=== PATIENT | male | born 1950 | race Caucasian/White ===

== ENCOUNTER 2022-12-16 19:56 | Inpatient (IN) | payer MEDICARE, SELFPAY ==
[~2022-12-16] VITALS: Ht 182.9 cm; Wt 91.6 kg
[~2022-12-16 19:56] MED LIST: ASPI-730 PO; METO50TA9 PO
[2022-12-16] MEDS ORDERED: MIDAZOLAM HCL 5 MG/ML VIAL ONE (20:02)
[2022-12-16] MEDS ORDERED: SODIUM CHLORIDE 0.9% 100 ML ONE (20:06)
[2022-12-16] MEDS ORDERED: IOHEXOL 350 MG/ML 100 ML VIAL ONE (20:06)
[2022-12-16] MEDS ORDERED: SODIUM CHLORIDE 0.9% 1,000 ML IV ONE (20:15)
[2022-12-16] MEDS ORDERED: MIDAZOLAM HCL 2 MG/2 ML VIAL IVP ONE (20:15)
[2022-12-16 20:39] LABS: BASOPHILS % (AUTO) 0.1 % (0.0-2.0); EOSINOPHILS % (AUTO) 0.1 % (1.0-6.0); HEMATOCRIT 48.2 % (41-53); HEMOGLOBIN 15.6 g/dL (13.5-17.5); LYMPHOCYTES # (AUTO) 0.8 K/uL (1.0-4.8); LYMPHOCYTES % (AUTO) 5.8 % (22.0-44.0); MEAN CORPUSCULAR HEMOGLOBIN 33.5 pg (26.0-34.0); MEAN CORPUSCULAR HGB CONC 32.4 G/dL (31.0-37.0); MEAN CORPUSCULAR VOLUME 104 fL (80-100); MONOCYTES # (AUTO) 1.1 K/uL (0.1-1.0); MONOCYTES % (AUTO) 7.9 % (2.0-9.0); NEUTROPHILS # (AUTO) 12.4 K/uL (1.8-7.7); PLATELET COUNT (AUTO) 226 K/uL (150-450); RED BLOOD CELL COUNT(AUTO) 4.66 MIL/uL (4.50-5.90); RED CELL DISTRIBUTION WIDTH 13.4 % (11.5-14.5)
[2022-12-16 20:43] LABS: NEUTROPHILS % (AUTO) 86.1 % (40.0-70.0)
[2022-12-16 20:48] LABS: ALBUMIN 3.7 g/dL (3.4-5.0); BILIRUBIN,TOTAL 0.5 mg/dL (0.1-1.0); CALCIUM, TOTAL 8.9 mg/dL (8.8-10.5); CREATININE 1.56 mg/dL (0.60-1.30); TOTAL PROTEIN, SERUM 7.5 g/dL (6.4-8.2)
[2022-12-16 20:52] LABS: POTASSIUM 2.6 mmol/L (3.5-5.1)
[2022-12-16 21:04] LABS: INR 1.2 (0.9-1.1); PROTHROMBIN TIME 13.1 SEC (9.4-11.6)
[2022-12-16] MEDS ORDERED: HEPARIN SODIUM,PORCINE 5,000 UNITS/ML VIAL IVP ONE ×2 (21:15→23:15)
[2022-12-16] MEDS ORDERED: ASPIRIN 300 MG RECTAL SUPPOSITORY PR ONE (21:15)
[2022-12-16] MEDS ORDERED: SODIUM BICARBONATE 50 MEQ/50 ML VIAL ONE (21:27)
[2022-12-16] MEDS ORDERED: LIDOCAINE/PF 1% 30 ML VIAL ONE (21:27)
[2022-12-16] MEDS ORDERED: HEPARIN SODIUM 1000 UNITS/NS 1,000 ML ONE (21:28)
[2022-12-16] MEDS ORDERED: IOHEXOL 300 MG/ML 100 ML VIAL ONE (21:28)
[2022-12-16] MEDS ORDERED: POTASSIUM CHL 10 MEQ/WATER 50 ML IV ONE (21:45)
[2022-12-16 21:46] LABS: AMPHET/METH SCREEN,URINE NEGATIVE (NEGATIVE); BARBITURATE SCREEN, URINE NEGATIVE (NEGATIVE); BENZODIAZEPINES SCREEN,URINE NEGATIVE (NEGATIVE); CANNABINOID SCREEN,URINE NEGATIVE (NEGATIVE); COCAINE SCREEN,URINE NEGATIVE (NEGATIVE); METHADONE SCREEN, URINE NEGATIVE (NEGATIVE); OPIATE SCREEN,URINE NEGATIVE (NEGATIVE); PHENCYCLIDINE SCREEN,URINE NEGATIVE (NEGATIVE)
[2022-12-16 22:02] LABS: APPEARANCE,URINE CLEAR (CLEAR); BILIRUBIN,URINE NEGATIVE (NEGATIVE); GLUCOSE, URINE (UA) 300-500 mg/dL (NEGATIVE); KETONES,URINE 80-100 mg/dL (NEGATIVE); LEUKOCYTE ESTERASE ,URINE NEGATIVE (NEGATIVE); NITRATE,URINE POSITIVE (NEGATIVE); OCCULT BLOOD,URINE NEGATIVE (NEGATIVE); PH,URINE 5.5 (5.0-8.0); PROTEIN,URINE TRACE mg/dL (NEGATIVE); SPECIFIC GRAVITIY, URINE 1.015 (1.003-1.030); UROBILINOGEN,URINE <=1.0 mg/dL (<=1.0)
[2022-12-16 22:15] LABS: RBC,URINE 0-2 /HPF (0-2)
[2022-12-16] MEDS ORDERED: POTASSIUM CHL 10 MEQ/WATER 50 ML IV SCH (22:15)
[2022-12-16 22:16] LABS: BACTERIA,URINE Many /HPF (None Seen); SQUAMOUS EPITHELIAL CELL,UR Few /LPF (None Seen)
[2022-12-16] MEDS ORDERED: HEPARIN SODIUM 1000 UNITS/NS 1,000 ML IARTER ONE (22:30)
[2022-12-16] MEDS ORDERED: IOHEXOL 300 MG/ML 100 ML VIAL ICOR ONE (22:30)
[2022-12-16] MEDS ORDERED: LIDOCAINE 1% 30 ML/SOD BICARB 8.4% 4 ML SQ ONE (22:30)
[2022-12-16] MEDS: POTASSIUM CHL 10 MEQ/WATER 50 ML IV SCH ×2 (22:43→22:54)
[2022-12-16] MEDS ORDERED: DEXTROSE 50%-WATER 25 GM/50 ML SYRINGE IVP PRN (22:45)
[2022-12-16] MEDS ORDERED: HEPARIN SODIUM,PORCINE 5,000 UNITS/ML VIAL IVP PRN ×4 (22:45→23:15)
[2022-12-16] MEDS ORDERED: ALBUTEROL SULFATE 2.5 MG/0.5 ML NEB SOLUTION NEB PRN (22:45)
[2022-12-16] MEDS ORDERED: ACETAMINOPHEN 325 MG TABLET PO PRN (22:45)
[2022-12-16] MEDS ORDERED: HEPARIN SODIUM 25000 UNITS/D5W 250 ML IV PRN ×2 (22:45→23:15)
[2022-12-16] MEDS ORDERED: ONDANSETRON HCL 4 MG/2 ML VIAL IVP PRN (22:45)
[2022-12-16] MEDS ORDERED: IPRATROPIUM BROMIDE 0.5 MG/2.5 ML NEB SOLUTION NEB PRN (22:45)
[2022-12-17] VITALS (8 sets, daily range): BP systolic 115–147; BP diastolic 53–83
[2022-12-17] MEDS ORDERED: HEPARIN SODIUM,PORCINE 5,000 UNITS/ML VIAL SQ SCH
[2022-12-17 00:24] LABS: COVID AG,FIA SOURCE NASAL SWAB
[2022-12-17 00:46] LABS: IRON, SERUM 94 mcg/dL (50-175)
[2022-12-17 00:51] LABS: SALICYLATE 0.8 mg/dL (2.8-20.0)
[2022-12-17 01:11] LABS: ACETAMINOPHEN < 2 mcg/mL (10-30)
[2022-12-17] MEDS: CefTRIAXone 1 GM/DEXTROSE 50 ML IV SCH (01:50)
[2022-12-17] MEDS: POTASSIUM CHL 10 MEQ/WATER 50 ML IV SCH ×2 (01:50→02:21)
[2022-12-17] MEDS: AZITHROMYCIN 500 MG/NS 250 ML IV SCH (01:51)
[2022-12-17 02:23] LABS: LACTIC ACID 2.8 mmol/L (0.4-2.0)
[2022-12-17] MEDS ORDERED: SODIUM CHLORIDE 0.9% 1,000 ML IV ONE (03:30)
[2022-12-17] MEDS: METOPROLOL TARTRATE 5 MG/5 ML VIAL IVP SCH ×4 (05:38→17:27)
[2022-12-17 06:41] LABS: GLUCOSE,POINT OF CARE 138 MG/DL (70-110)
[2022-12-17 07:12] LABS: BASOPHILS % (AUTO) 0.2 % (0.0-2.0); EOSINOPHILS % (AUTO) 0 % (1.0-6.0); HEMATOCRIT 43.7 % (41-53); HEMOGLOBIN 14.5 g/dL (13.5-17.5); LYMPHOCYTES # (AUTO) 1.1 K/uL (1.0-4.8); LYMPHOCYTES % (AUTO) 9.7 % (22.0-44.0); MEAN CORPUSCULAR HEMOGLOBIN 33.5 pg (26.0-34.0); MEAN CORPUSCULAR HGB CONC 33.1 G/dL (31.0-37.0); MEAN CORPUSCULAR VOLUME 101 fL (80-100); MONOCYTES # (AUTO) 0.8 K/uL (0.1-1.0); MONOCYTES % (AUTO) 7.6 % (2.0-9.0); NEUTROPHILS # (AUTO) 9.2 K/uL (1.8-7.7); NEUTROPHILS % (AUTO) 82.5 % (40.0-70.0); PLATELET COUNT (AUTO) 198 K/uL (150-450); RED BLOOD CELL COUNT(AUTO) 4.31 MIL/uL (4.50-5.90); RED CELL DISTRIBUTION WIDTH 13.1 % (11.5-14.5)
[2022-12-17 07:20] LABS: ANION GAP 8 mmol/L (8-16); CALCIUM, TOTAL 8.4 mg/dL (8.8-10.5); CARBON DIOXIDE 25 mmol/L (22-29); CHLORIDE 104 mmol/L (98-107); CREATININE 0.93 mg/dL (0.60-1.30); GLOMERULAR FILTR. RATE CALC > 60 mL/min (>60); GLUCOSE,RANDOM 135 mg/dL (70-110); SODIUM SERUM 137 mmol/L (136-145); UREA NITROGEN, BLOOD 16 mg/dL (7-18)
[2022-12-17 07:22] LABS: ABG A-A DIFF O2 109.2 mmHg (10-20.0); ABG BASE EXCESS -1.4 mmol/L (-2.0-3.0); ABG METHEMOGLOBIN 0.3 % (0.0-1.5); ABG OXYGEN SATURATION 96.1 % (95.0-98.0); ABG OXYHEMOGLOBIN 94.9 % (94.0-100.0); ABG PCO2 32 mmHg (35-45); ABG PH 7.463 (7.35-7.450); O2 DEVICE,BLOOD GAS CANNULA (ROOM AIR); PO2, ARTERIAL BG 81.6 mmHg (75.0-83.0); SITE, BLOOD GAS RT RADIAL; SOURCE, BLOOD GAS ARTERIAL; TEMPERATURE, FAHRENHEIT, BG 98.6 FAHREN (96.0-98.6)
[2022-12-17] MEDS ORDERED: ASPIRIN 81 MG CHEWABLE TABLET PO SCH (08:00)
[2022-12-17] MEDS: ASPIRIN 81 MG CHEWABLE TABLET NG SCH (09:00)
[2022-12-17 13:11] LABS: GLUCOSE,POINT OF CARE 111 MG/DL (70-110)
[2022-12-17] MEDS: LORazepam 2 MG/ML VIAL IVP PRN (13:33)
[2022-12-17] MEDS ORDERED: CLOPIDOGREL BISULFATE 300 MG TABLET PO ONE (16:30)
[2022-12-17 19:26] LABS: GLUCOSE,POINT OF CARE 146 MG/DL (70-110)
[2022-12-17] MEDS: ATORVASTATIN CALCIUM 40 MG TABLET NG SCH ×2 (21:00→21:07)
[2022-12-17] MEDS: INSULIN GLARGINE,HUM.REC.ANLOG 100 UNITS/ML SQ SCH ×2 (21:00→21:09)
[2022-12-17 21:21] LABS: GLUCOSE,POINT OF CARE 116 MG/DL (70-110)
[2022-12-18] VITALS (15 sets, daily range): BP systolic 142–183; BP diastolic 34–100
[2022-12-18] MEDS: METOPROLOL TARTRATE 5 MG/5 ML VIAL IVP SCH ×4 (00:18→18:35)
[2022-12-18] MEDS: CefTRIAXone 1 GM/DEXTROSE 50 ML IV SCH (01:36)
[2022-12-18] MEDS: AZITHROMYCIN 500 MG/NS 250 ML IV SCH (02:14)
[2022-12-18 07:31] LABS: GLUCOSE,POINT OF CARE 121 MG/DL (70-110)
[2022-12-18] MEDS: CLOPIDOGREL BISULFATE 75 MG TABLET PO SCH (09:00)
[2022-12-18] MEDS: ASPIRIN 81 MG CHEWABLE TABLET NG SCH (09:00)
[2022-12-18] MEDS ORDERED: ZOLPIDEM TARTRATE 10 MG TABLET PO PRN (14:00)
[2022-12-18 14:16] LABS: GLUCOSE,POINT OF CARE 89 MG/DL (70-110)
[2022-12-18] MEDS ORDERED: IOHEXOL 350 MG/ML 100 ML VIAL ONE (14:52)
[2022-12-18] MEDS ORDERED: LIDOCAINE/PF 1% 30 ML VIAL ONE (14:52)
[2022-12-18] MEDS ORDERED: HEPARIN SODIUM 1000 UNITS/NS 1,000 ML ONE (14:52)
[2022-12-18] MEDS ORDERED: SODIUM BICARBONATE 50 MEQ/50 ML VIAL ONE (14:52)
[2022-12-18 15:09] LABS: ANION GAP 8 mmol/L (8-16); CALCIUM, TOTAL 8.7 mg/dL (8.8-10.5); CARBON DIOXIDE 28 mmol/L (22-29); CHLORIDE 106 mmol/L (98-107); CREATININE 0.85 mg/dL (0.60-1.30); GLOMERULAR FILTR. RATE CALC > 60 mL/min (>60); GLUCOSE,RANDOM 103 mg/dL (70-110); POTASSIUM 3.6 mmol/L (3.5-5.1); SODIUM SERUM 142 mmol/L (136-145); UREA NITROGEN, BLOOD 11 mg/dL (7-18)
[2022-12-18] MEDS ORDERED: FentaNYL CITRATE PF 100 MCG/2 ML VIAL ONE (15:35)
[2022-12-18] MEDS ORDERED: MIDAZOLAM HCL 2 MG/2 ML VIAL ONE (15:36)
[2022-12-18] MEDS ORDERED: IOHEXOL 300 MG/ML 50 ML VIAL ONE (15:49)
[2022-12-18] MEDS ORDERED: LABETALOL HCL 5 MG/ML 20 ML VIAL IVP ONE ×2 (15:57→16:30)
[2022-12-18] MEDS ORDERED: HEPARIN SODIUM 1000 UNITS/NS 1,000 ML IARTER ONE (16:00)
[2022-12-18] MEDS ORDERED: MIDAZOLAM HCL 2 MG/2 ML VIAL IVP ONE ×2 (16:00)
[2022-12-18] MEDS ORDERED: FentaNYL CITRATE PF 100 MCG/2 ML VIAL IVP ONE ×2 (16:00)
[2022-12-18] MEDS ORDERED: LIDOCAINE 1% 30 ML/SOD BICARB 8.4% 4 ML SQ ONE (16:00)
[2022-12-18] MEDS ORDERED: IOHEXOL 300 MG/ML 100 ML VIAL IARTER ONE (16:00)
[2022-12-18] MEDS ORDERED: IOHEXOL 300 MG/ML 100 ML VIAL ONE (16:28)
[2022-12-18] MEDS: LORazepam 2 MG/ML VIAL IVP PRN ×2 (18:28→20:48)
[2022-12-18] MEDS: ATORVASTATIN CALCIUM 40 MG TABLET NG SCH (20:03)
[2022-12-18] MEDS ORDERED: HALOPERIDOL LACTATE 5 MG/ML VIAL IM ONE (20:30)
[2022-12-18] MEDS: INSULIN GLARGINE,HUM.REC.ANLOG 100 UNITS/ML SQ SCH (21:02)
[2022-12-18 21:11] LABS: GLUCOSE,POINT OF CARE 135 MG/DL (70-110)
[2022-12-18] MEDS ORDERED: SODIUM CHLORIDE 0.9% 500 ML IV ONE (22:52)
[2022-12-19] VITALS (9 sets, daily range): BP systolic 128–170; BP diastolic 54–107
[2022-12-19] MEDS: METOPROLOL TARTRATE 5 MG/5 ML VIAL IVP SCH ×4 (00:25→16:40)
[2022-12-19] MEDS: LORazepam 2 MG/ML VIAL IVP PRN ×3 (00:33→12:25)
[2022-12-19] MEDS: CefTRIAXone 1 GM/DEXTROSE 50 ML IV SCH (01:24)
[2022-12-19] MEDS: AZITHROMYCIN 500 MG/NS 250 ML IV SCH (01:25)
[2022-12-19 05:48] LABS: BASOPHILS % (AUTO) 0.1 % (0.0-2.0); EOSINOPHILS % (AUTO) 0.8 % (1.0-6.0); HEMATOCRIT 47.3 % (41-53); HEMOGLOBIN 15.7 g/dL (13.5-17.5); LYMPHOCYTES # (AUTO) 1.2 K/uL (1.0-4.8); LYMPHOCYTES % (AUTO) 13.2 % (22.0-44.0); MEAN CORPUSCULAR HEMOGLOBIN 34.1 pg (26.0-34.0); MEAN CORPUSCULAR HGB CONC 33.2 G/dL (31.0-37.0); MEAN CORPUSCULAR VOLUME 103 fL (80-100); MONOCYTES % (AUTO) 10.8 % (2.0-9.0); NEUTROPHILS # (AUTO) 6.9 K/uL (1.8-7.7); NEUTROPHILS % (AUTO) 75.1 % (40.0-70.0); PLATELET COUNT (AUTO) 141 K/uL (150-450); RED BLOOD CELL COUNT(AUTO) 4.61 MIL/uL (4.50-5.90)
[2022-12-19 06:05] LABS: ANION GAP 9 mmol/L (8-16); CALCIUM, TOTAL 8.6 mg/dL (8.8-10.5); CARBON DIOXIDE 27 mmol/L (22-29); CHLORIDE 101 mmol/L (98-107); CREATININE 0.83 mg/dL (0.60-1.30); GLOMERULAR FILTR. RATE CALC > 60 mL/min (>60); GLUCOSE,RANDOM 99 mg/dL (70-110); POTASSIUM 3.5 mmol/L (3.5-5.1); SODIUM SERUM 137 mmol/L (136-145); UREA NITROGEN, BLOOD 9 mg/dL (7-18)
[2022-12-19 06:41] LABS: GLUCOSE,POINT OF CARE 93 MG/DL (70-110)
[2022-12-19] MEDS: ASPIRIN 81 MG CHEWABLE TABLET NG SCH (08:00)
[2022-12-19] MEDS: CLOPIDOGREL BISULFATE 75 MG TABLET PO SCH (08:00)
[2022-12-19] MEDS ORDERED: POTASSIUM CHLORIDE 20 MEQ ER TABLET PO PRN (09:15)
[2022-12-19] MEDS ORDERED: SODIUM CHLORIDE 0.9% 250 ML IV ONE (10:52)
[2022-12-19] MEDS: ChlordiazePOXIDE HCL 25 MG CAPSULE PO SCH (16:39)
[2022-12-19 18:46] LABS: GLUCOSE,POINT OF CARE 79 MG/DL (70-110)
[2022-12-19 18:46] LABS: GLUCOSE,POINT OF CARE 91 MG/DL (70-110)
[2022-12-19] MEDS: ATORVASTATIN CALCIUM 40 MG TABLET NG SCH (21:13)
[2022-12-19] MEDS: INSULIN GLARGINE,HUM.REC.ANLOG 100 UNITS/ML SQ SCH (21:20)
[2022-12-19] MEDS: INSULIN LISPRO 100 UNITS/ML SQ PRN (21:21)
[2022-12-19 22:26] LABS: GLUCOMETER DEV NAME(LOC) 5N.1C; GLUCOSE,POINT OF CARE 167 MG/DL (70-110)
[2022-12-20] MEDS: METOPROLOL TARTRATE 5 MG/5 ML VIAL IVP SCH ×3 (00:27→11:41)
[2022-12-20] MEDS: ChlordiazePOXIDE HCL 25 MG CAPSULE PO SCH ×5 (00:28→23:28)
[2022-12-20 00:45] VITALS: BP 124/74
[2022-12-20] MEDS ORDERED: SODIUM CHLORIDE 0.9% 100 ML ONE (02:04)
[2022-12-20] MEDS: CefTRIAXone 1 GM/DEXTROSE 50 ML IV SCH (02:05)
[2022-12-20] MEDS: AZITHROMYCIN 500 MG/NS 250 ML IV SCH (02:44)
[2022-12-20 04:06] VITALS: BP 115/68
[2022-12-20 07:00] LABS: BASOPHILS % (AUTO) 0.2 % (0.0-2.0); EOSINOPHILS % (AUTO) 2.4 % (1.0-6.0); HEMATOCRIT 43.5 % (41-53); HEMOGLOBIN 14.9 g/dL (13.5-17.5); LYMPHOCYTES # (AUTO) 0.9 K/uL (1.0-4.8); LYMPHOCYTES % (AUTO) 12.7 % (22.0-44.0); MEAN CORPUSCULAR HEMOGLOBIN 34.6 pg (26.0-34.0); MEAN CORPUSCULAR HGB CONC 34.3 G/dL (31.0-37.0); MEAN CORPUSCULAR VOLUME 101 fL (80-100); MONOCYTES # (AUTO) 0.6 K/uL (0.1-1.0); NEUTROPHILS # (AUTO) 5.5 K/uL (1.8-7.7); NEUTROPHILS % (AUTO) 76.7 % (40.0-70.0); PLATELET COUNT (AUTO) 140 K/uL (150-450); RED BLOOD CELL COUNT(AUTO) 4.31 MIL/uL (4.50-5.90); RED CELL DISTRIBUTION WIDTH 12.5 % (11.5-14.5)
[2022-12-20 07:16] LABS: ANION GAP 7 mmol/L (8-16); CALCIUM, TOTAL 8.5 mg/dL (8.8-10.5); CARBON DIOXIDE 28 mmol/L (22-29); CHLORIDE 102 mmol/L (98-107); CREATININE 0.79 mg/dL (0.60-1.30); GLOMERULAR FILTR. RATE CALC > 60 mL/min (>60); GLUCOSE,RANDOM 94 mg/dL (70-110); POTASSIUM 3.4 mmol/L (3.5-5.1); SODIUM SERUM 137 mmol/L (136-145); UREA NITROGEN, BLOOD 19 mg/dL (7-18)
[2022-12-20 08:00] VITALS: BP 145/84
[2022-12-20] MEDS: ASPIRIN 81 MG CHEWABLE TABLET NG SCH (09:10)
[2022-12-20] MEDS: CLOPIDOGREL BISULFATE 75 MG TABLET PO SCH (09:10)
[2022-12-20] MEDS: LORazepam 2 MG/ML VIAL IVP PRN (11:41)
[2022-12-20 12:00] VITALS: BP 158/99
[2022-12-20] MEDS: FOLIC ACID 1 MG TABLET PO SCH (15:37)
[2022-12-20] MEDS: THIAMINE 100 MG/ML 2 ML VIAL IVP SCH (15:37)
[2022-12-20 16:00] VITALS: BP 115/64
[2022-12-20] MEDS: METOPROLOL SUCCINATE 50 MG ER TABLET PO SCH (17:02)
[2022-12-20 18:26] LABS: GLUCOMETER DEV NAME(LOC) 5N.1C; GLUCOSE,POINT OF CARE 88 MG/DL (70-110)
[2022-12-20 18:26] LABS: GLUCOMETER DEV NAME(LOC) 5N.1C; GLUCOSE,POINT OF CARE 89 MG/DL (70-110)
[2022-12-20] MEDS: ATORVASTATIN CALCIUM 40 MG TABLET NG SCH ×3 (20:32→21:00)
[2022-12-20] MEDS: INSULIN GLARGINE,HUM.REC.ANLOG 100 UNITS/ML SQ SCH ×3 (20:37→21:00)
[2022-12-20 22:18] LABS: GLUCOMETER DEV NAME(LOC) 5S.1B; GLUCOSE,POINT OF CARE 132 MG/DL (70-110)
[2022-12-20 22:35] VITALS: BP 139/86
[2022-12-21] MEDS: CefTRIAXone 1 GM/DEXTROSE 50 ML IV SCH (01:26)
[2022-12-21 01:39] VITALS: BP 133/82
[2022-12-21] MEDS: AZITHROMYCIN 500 MG/NS 250 ML IV SCH (02:35)
[2022-12-21 04:53] VITALS: BP 152/88
[2022-12-21 06:42] LABS: GLUCOMETER DEV NAME(LOC) 5S.2B; GLUCOSE,POINT OF CARE 118 MG/DL (70-110)
[2022-12-21 07:04] LABS: BASOPHILS % (AUTO) 0.1 % (0.0-2.0); EOSINOPHILS % (AUTO) 2.6 % (1.0-6.0); HEMOGLOBIN 15.8 g/dL (13.5-17.5); LYMPHOCYTES # (AUTO) 1.2 K/uL (1.0-4.8); LYMPHOCYTES % (AUTO) 20.4 % (22.0-44.0); MEAN CORPUSCULAR HEMOGLOBIN 34.4 pg (26.0-34.0); MEAN CORPUSCULAR HGB CONC 34.3 G/dL (31.0-37.0); MEAN CORPUSCULAR VOLUME 100 fL (80-100); MONOCYTES # (AUTO) 0.6 K/uL (0.1-1.0); MONOCYTES % (AUTO) 9.7 % (2.0-9.0); NEUTROPHILS # (AUTO) 3.9 K/uL (1.8-7.7); NEUTROPHILS % (AUTO) 67.2 % (40.0-70.0); PLATELET COUNT (AUTO) 166 K/uL (150-450); RED BLOOD CELL COUNT(AUTO) 4.59 MIL/uL (4.50-5.90); RED CELL DISTRIBUTION WIDTH 12.5 % (11.5-14.5)
[2022-12-21 07:12] LABS: ANION GAP 9 mmol/L (8-16); CALCIUM, TOTAL 8.9 mg/dL (8.8-10.5); CARBON DIOXIDE 28 mmol/L (22-29); CHLORIDE 104 mmol/L (98-107); CREATININE 0.83 mg/dL (0.60-1.30); GLOMERULAR FILTR. RATE CALC > 60 mL/min (>60); GLUCOSE,RANDOM 114 mg/dL (70-110); POTASSIUM 3.8 mmol/L (3.5-5.1); SODIUM SERUM 141 mmol/L (136-145); UREA NITROGEN, BLOOD 21 mg/dL (7-18)
[2022-12-21 07:38] VITALS: BP 147/76
[2022-12-21] MEDS: ChlordiazePOXIDE HCL 25 MG CAPSULE PO SCH (08:00)
[2022-12-21 08:22] LABS: PLATELET MORPHOLOGY COMMENT GIANT PLTS PRESENT
[2022-12-21] MEDS: METOPROLOL SUCCINATE 50 MG ER TABLET PO SCH (09:00)
[2022-12-21] MEDS: ASPIRIN 81 MG CHEWABLE TABLET NG SCH (09:00)
[2022-12-21] MEDS: CLOPIDOGREL BISULFATE 75 MG TABLET PO SCH (09:00)
[2022-12-21] MEDS: FOLIC ACID 1 MG TABLET PO SCH (09:00)
[2022-12-21] MEDS: THIAMINE 100 MG/ML 2 ML VIAL IVP SCH (09:00)
[2022-12-21 12:00] VITALS: BP 135/84
[2022-12-21 12:22] LABS: GLUCOMETER DEV NAME(LOC) 5S.1B; GLUCOSE,POINT OF CARE 131 MG/DL (70-110)
[2022-12-21] MEDS ORDERED: LORazepam 2 MG/ML VIAL IVP PRN (12:27)
[2022-12-21] MEDS ORDERED: ChlordiazePOXIDE HCL 25 MG CAPSULE PO PRN (12:30)
[2022-12-21] MEDS ORDERED: LORazepam 2 MG/ML VIAL IM PRN (12:30)
[2022-12-21 19:56] VITALS: BP 116/56
[2022-12-21] MEDS: INSULIN GLARGINE,HUM.REC.ANLOG 100 UNITS/ML SQ SCH (21:00)
[2022-12-21] MEDS: ATORVASTATIN CALCIUM 40 MG TABLET NG SCH (21:43)
[2022-12-21] MEDS: QUEtiapine FUMARATE 25 MG TABLET PO SCH (21:44)
[2022-12-22] MEDS: CefTRIAXone 1 GM/DEXTROSE 50 ML IV SCH (02:29)
[2022-12-22] MEDS: AZITHROMYCIN 500 MG/NS 250 ML IV SCH (03:41)
[2022-12-22 06:29] VITALS: BP 145/89
[2022-12-22] MEDS ORDERED: ChlordiazePOXIDE HCL 25 MG CAPSULE PO PRN (07:00)
[2022-12-22 07:33] LABS: BASOPHILS % (AUTO) 0.1 % (0.0-2.0); EOSINOPHILS % (AUTO) 4.4 % (1.0-6.0); HEMOGLOBIN 15.8 g/dL (13.5-17.5); LYMPHOCYTES # (AUTO) 0.8 K/uL (1.0-4.8); LYMPHOCYTES % (AUTO) 13.4 % (22.0-44.0); MEAN CORPUSCULAR HEMOGLOBIN 34.5 pg (26.0-34.0); MEAN CORPUSCULAR HGB CONC 34.3 G/dL (31.0-37.0); MEAN CORPUSCULAR VOLUME 101 fL (80-100); MONOCYTES # (AUTO) 0.6 K/uL (0.1-1.0); NEUTROPHILS # (AUTO) 4.2 K/uL (1.8-7.7); NEUTROPHILS % (AUTO) 72.1 % (40.0-70.0); PLATELET COUNT (AUTO) 181 K/uL (150-450); RED BLOOD CELL COUNT(AUTO) 4.57 MIL/uL (4.50-5.90); RED CELL DISTRIBUTION WIDTH 12.5 % (11.5-14.5)
[2022-12-22 07:44] LABS: PLATELET MORPHOLOGY COMMENT GIANT PLTS PRESENT
[2022-12-22 07:45] VITALS: BP 147/86
[2022-12-22 08:07] LABS: ANION GAP 8 mmol/L (8-16); CARBON DIOXIDE 26 mmol/L (22-29); CHLORIDE 103 mmol/L (98-107); CREATININE 0.81 mg/dL (0.60-1.30); GLOMERULAR FILTR. RATE CALC > 60 mL/min (>60); GLUCOSE,RANDOM 114 mg/dL (70-110); POTASSIUM 3.9 mmol/L (3.5-5.1); SODIUM SERUM 137 mmol/L (136-145); UREA NITROGEN, BLOOD 21 mg/dL (7-18)
[2022-12-22] MEDS: FOLIC ACID 1 MG TABLET PO SCH (08:22)
[2022-12-22] MEDS: ChlordiazePOXIDE HCL 25 MG CAPSULE PO SCH ×4 (08:22→20:31)
[2022-12-22] MEDS: METOPROLOL SUCCINATE 50 MG ER TABLET PO SCH (08:22)
[2022-12-22] MEDS: CLOPIDOGREL BISULFATE 75 MG TABLET PO SCH (08:23)
[2022-12-22] MEDS: ASPIRIN 81 MG CHEWABLE TABLET NG SCH (08:23)
[2022-12-22] MEDS: THIAMINE 100 MG/ML 2 ML VIAL IVP SCH (08:23)
[2022-12-22 10:56] LABS: GLUCOMETER DEV NAME(LOC) 5S.2B; GLUCOSE,POINT OF CARE 107 MG/DL (70-110)
[2022-12-22 10:56] LABS: GLUCOMETER DEV NAME(LOC) 5S.1B; GLUCOSE,POINT OF CARE 96 MG/DL (70-110)
[2022-12-22 11:20] VITALS: BP 130/75
[2022-12-22 15:08] VITALS: BP 114/70
[2022-12-22 19:25] VITALS: BP 130/68
[2022-12-22 19:41] LABS: GLUCOMETER DEV NAME(LOC) 5S.1B; GLUCOSE,POINT OF CARE 123 MG/DL (70-110)
[2022-12-22 19:41] LABS: GLUCOMETER DEV NAME(LOC) 5S.1B; GLUCOSE,POINT OF CARE 121 MG/DL (70-110)
[2022-12-22] MEDS: INSULIN LISPRO 100 UNITS/ML SQ PRN (20:27)
[2022-12-22] MEDS: ATORVASTATIN CALCIUM 40 MG TABLET NG SCH ×2 (20:31→21:00)
[2022-12-22] MEDS: QUEtiapine FUMARATE 25 MG TABLET PO SCH (20:32)
[2022-12-22] MEDS: INSULIN GLARGINE,HUM.REC.ANLOG 100 UNITS/ML SQ SCH (21:00)
[2022-12-22 21:36] LABS: GLUCOMETER DEV NAME(LOC) 5S.2B; GLUCOSE,POINT OF CARE 157 MG/DL (70-110)
[2022-12-22 23:58] VITALS: BP 104/59
[2022-12-23] VITALS (7 sets, daily range): BP systolic 109–132; BP diastolic 66–83
[2022-12-23] MEDS ORDERED: SODIUM CHLORIDE 0.9% 500 ML IV ONE (01:48)
[2022-12-23] MEDS: CefTRIAXone 1 GM/DEXTROSE 50 ML IV SCH (01:49)
[2022-12-23] MEDS: AZITHROMYCIN 500 MG/NS 250 ML IV SCH (02:46)
[2022-12-23 07:04] LABS: BASOPHILS % (AUTO) 0.3 % (0.0-2.0); EOSINOPHILS % (AUTO) 4.7 % (1.0-6.0); HEMATOCRIT 44.1 % (41-53); HEMOGLOBIN 14.7 g/dL (13.5-17.5); LYMPHOCYTES # (AUTO) 0.9 K/uL (1.0-4.8); MEAN CORPUSCULAR HEMOGLOBIN 33.6 pg (26.0-34.0); MEAN CORPUSCULAR HGB CONC 33.4 G/dL (31.0-37.0); MEAN CORPUSCULAR VOLUME 101 fL (80-100); MONOCYTES # (AUTO) 0.6 K/uL (0.1-1.0); MONOCYTES % (AUTO) 11.4 % (2.0-9.0); NEUTROPHILS # (AUTO) 3.9 K/uL (1.8-7.7); NEUTROPHILS % (AUTO) 68.6 % (40.0-70.0); PLATELET COUNT (AUTO) 200 K/uL (150-450); RED BLOOD CELL COUNT(AUTO) 4.38 MIL/uL (4.50-5.90); RED CELL DISTRIBUTION WIDTH 12.5 % (11.5-14.5)
[2022-12-23 07:13] LABS: ANION GAP 10 mmol/L (8-16); CALCIUM, TOTAL 9.1 mg/dL (8.8-10.5); CARBON DIOXIDE 28 mmol/L (22-29); CHLORIDE 104 mmol/L (98-107); CREATININE 0.99 mg/dL (0.60-1.30); GLOMERULAR FILTR. RATE CALC > 60 mL/min (>60); GLUCOSE,RANDOM 128 mg/dL (70-110); POTASSIUM 3.5 mmol/L (3.5-5.1); SODIUM SERUM 142 mmol/L (136-145); UREA NITROGEN, BLOOD 24 mg/dL (7-18)
[2022-12-23] MEDS: FOLIC ACID 1 MG TABLET PO SCH (08:53)
[2022-12-23] MEDS: THIAMINE 100 MG/ML 2 ML VIAL IVP SCH (08:53)
[2022-12-23] MEDS: ASPIRIN 81 MG CHEWABLE TABLET NG SCH (08:53)
[2022-12-23] MEDS: ChlordiazePOXIDE HCL 25 MG CAPSULE PO SCH ×4 (08:53→20:08)
[2022-12-23] MEDS: METOPROLOL SUCCINATE 50 MG ER TABLET PO SCH (08:54)
[2022-12-23] MEDS: CLOPIDOGREL BISULFATE 75 MG TABLET PO SCH (08:54)
[2022-12-23] MEDS: QUEtiapine FUMARATE 25 MG TABLET PO SCH (20:08)
[2022-12-23] MEDS: ATORVASTATIN CALCIUM 40 MG TABLET NG SCH (20:12)
[2022-12-23] MEDS: INSULIN GLARGINE,HUM.REC.ANLOG 100 UNITS/ML SQ SCH (21:00)
[2022-12-24] MEDS ORDERED: ChlordiazePOXIDE HCL 10 MG CAPSULE PO PRN (07:00)
[2022-12-24] MEDS ORDERED: ChlordiazePOXIDE HCL 10 MG CAPSULE PO SCH (09:00)
[2022-12-25] MEDS ORDERED: ChlordiazePOXIDE HCL 10 MG CAPSULE PO PRN (07:00)
== END 2022-12-23 23:04 | DRG 871 ==
LOC: EMS 19:57 → ICU 23:49 → 5S 12-19 18:40
PROVIDERS: ADMIT Internal Medicine; ATTEND Internal Medicine
PROC: 4A023N7 Measurement of Cardiac Sampling and Pressure, Left Heart, Percutaneous Approach (ICD-10-PCS; principal; 2022-12-18)
PROC: B2111ZZ Fluoroscopy of Multiple Coronary Arteries using Low Osmolar Contrast (ICD-10-PCS; 2022-12-18)
PROC: B41F1ZZ Fluoroscopy of Right Lower Extremity Arteries using Low Osmolar Contrast (ICD-10-PCS; 2022-12-18)
DX: A41.9 Sepsis, unspecified organism (principal); G92.8 Other toxic encephalopathy; I21.19 ST elevation (STEMI) myocardial infarction involving other coronary artery of inferior wall; N17.0 Acute kidney failure with tubular necrosis; J96.90 Respiratory failure, unspecified, unspecified whether with hypoxia or hypercapnia; N39.0 Urinary tract infection, site not specified; F10.239 Alcohol dependence with withdrawal, unspecified; F05 Delirium due to known physiological condition; E51.2 Wernicke's encephalopathy; I69.351 Hemiplegia and hemiparesis following cerebral infarction affecting right dominant side; I10 Essential (primary) hypertension; Z20.822 Contact with and (suspected) exposure to COVID-19; E78.5 Hyperlipidemia, unspecified; E87.6 Hypokalemia; E11.9 Type 2 diabetes mellitus without complications; I25.10 Atherosclerotic heart disease of native coronary artery without angina pectoris; S30.1XXA Contusion of abdominal wall, initial encounter; Z79.02 Long term (current) use of antithrombotics/antiplatelets; Z79.4 Long term (current) use of insulin; Z79.82 Long term (current) use of aspirin; Z82.49 Family history of ischemic heart disease and other diseases of the circulatory system; Z79.899 Other long term (current) drug therapy; I69.392 Facial weakness following cerebral infarction; Z78.1 Physical restraint status; X58.XXXA Exposure to other specified factors, initial encounter; Y93.89 Activity, other specified; Y92.230 Patient room in hospital as the place of occurrence of the external cause; Y99.8 Other external cause status
CPT/HCPCS: 70450; 70496; 70498; 71045; 76770; 80048; 80053; 80307; 81001; 82805; 82948; 82962; 83540; 83605; 83735; 84132; 84484; 85025; 85610; 85730; 86850; 86900; 86901; 87040; 87086; 87186; 92610; 93005; 93306; 97116; 97162; 97167; 97530; 97535; 99291; G0378; G0480; G0481; J0456; J0696; J1630; J1644; J1815; J2060; J2250; J3010; J3411; J3480; J3490; J7030; J7040; J7050; Q9967; 36415-L1; 36415-TC

== ENCOUNTER 2022-12-23 23:33 | Inpatient (IN) | payer MEDICARE ==
[2022-12-23] VITALS: BP 155/86
[~2022-12-23] VITALS: Ht 185.4 cm; Wt 92.5 kg
[2022-12-23 23:30] VITALS: BP 155/86
[2022-12-24] MEDS ORDERED: ACETAMINOPHEN 325 MG TABLET PO PRN (00:45)
[2022-12-24] MEDS ORDERED: DEXTROSE 50%-WATER 25 GM/50 ML SYRINGE IVP PRN (00:45)
[2022-12-24] MEDS ORDERED: INSULIN LISPRO 100 UNITS/ML SQ PRN (00:45)
[2022-12-24] MEDS ORDERED: ALBUTEROL SULFATE 2.5 MG/0.5 ML NEB SOLUTION NEB PRN (01:00)
[2022-12-24] MEDS ORDERED: ChlordiazePOXIDE HCL 10 MG CAPSULE PO PRN (01:00)
[2022-12-24] MEDS ORDERED: INFLUENZA VIRUS VACCINE QVS 2022-23 (6MO+)/PF 60 MCG/0.5 ML SYRINGE IM. ONE (02:15)
[2022-12-24] MEDS ORDERED: PNEUMOCOCCAL VACCINE POLYVALENT 0.5 ML VIAL [PPSV23] IM. ONE (02:15)
[2022-12-24 08:00] VITALS: BP 138/78
[2022-12-24 08:01] LABS: GLUCOMETER DEV NAME(LOC) 2WR.2B; GLUCOSE,POINT OF CARE 119 MG/DL (70-110)
[2022-12-24 08:26] LABS: BASOPHILS % (AUTO) 0.3 % (0.0-2.0); EOSINOPHILS % (AUTO) 5.1 % (1.0-6.0); HEMATOCRIT 40.4 % (41-53); LYMPHOCYTES # (AUTO) 1.3 K/uL (1.0-4.8); LYMPHOCYTES % (AUTO) 22.9 % (22.0-44.0); MEAN CORPUSCULAR HEMOGLOBIN 34.5 pg (26.0-34.0); MEAN CORPUSCULAR HGB CONC 34.5 G/dL (31.0-37.0); MEAN CORPUSCULAR VOLUME 100 fL (80-100); MONOCYTES # (AUTO) 0.6 K/uL (0.1-1.0); MONOCYTES % (AUTO) 10.3 % (2.0-9.0); NEUTROPHILS # (AUTO) 3.5 K/uL (1.8-7.7); NEUTROPHILS % (AUTO) 61.4 % (40.0-70.0); PLATELET COUNT (AUTO) 214 K/uL (150-450); RED BLOOD CELL COUNT(AUTO) 4.04 MIL/uL (4.50-5.90); RED CELL DISTRIBUTION WIDTH 12.3 % (11.5-14.5)
[2022-12-24 08:27] LABS: PLATELET MORPHOLOGY COMMENT LARGE PLTS PRESENT
[2022-12-24 08:57] LABS: ALANINE AMINOTRANSFERASE 45 U/L (12-78); ALBUMIN 3.1 g/dL (3.4-5.0); ALKALINE PHOSPHATASE 51 U/L (46-116); ANION GAP 6 mmol/L (8-16); ASPARTATE AMINOTRANSFERASE 37 U/L (15-37); BILIRUBIN,TOTAL 0.7 mg/dL (0.1-1.0); CARBON DIOXIDE 28 mmol/L (22-29); CHLORIDE 105 mmol/L (98-107); GLOMERULAR FILTR. RATE CALC > 60 mL/min (>60); GLUCOSE,RANDOM 120 mg/dL (70-110); POTASSIUM 3.9 mmol/L (3.5-5.1); SODIUM SERUM 139 mmol/L (136-145); TOTAL PROTEIN, SERUM 6.6 g/dL (6.4-8.2); UREA NITROGEN, BLOOD 28 mg/dL (7-18)
[2022-12-24] MEDS: ETHYL ALCOHOL 62% ANTISEPTIC NASAL SANITIZER 0.6 ML AMPUL NASAL SCH ×2 (09:23→22:49)
[2022-12-24] MEDS: ASPIRIN 81 MG CHEWABLE TABLET PO SCH (09:23)
[2022-12-24] MEDS: DOCUSATE SODIUM 250 MG CAPSULE PO SCH ×2 (09:23→22:45)
[2022-12-24] MEDS: FOLIC ACID 1 MG TABLET PO SCH (09:23)
[2022-12-24] MEDS: ChlordiazePOXIDE HCL 10 MG CAPSULE PO SCH ×4 (09:24→22:43)
[2022-12-24] MEDS: THIAMINE 100 MG TABLET PO SCH (09:24)
[2022-12-24] MEDS: NITROFURANTOIN MONOHYD/M-CRYST 100 MG CAPSULE [MACROBID] PO SCH ×2 (09:24→22:40)
[2022-12-24] MEDS: CLOPIDOGREL BISULFATE 75 MG TABLET PO SCH (09:24)
[2022-12-24] MEDS: METOPROLOL SUCCINATE 50 MG ER TABLET PO SCH (09:24)
[2022-12-24 13:17] LABS: GLUCOMETER DEV NAME(LOC) 2WR.1C; GLUCOSE,POINT OF CARE 105 MG/DL (70-110)
[2022-12-24] MEDS ORDERED: LACTULOSE 20 GM/30 ML SOLUTION UDCUP PO PRN (15:15)
[2022-12-24 18:31] LABS: GLUCOMETER DEV NAME(LOC) 2WR.2B; GLUCOSE,POINT OF CARE 90 MG/DL (70-110)
[2022-12-24 20:00] VITALS: BP 156/78
[2022-12-24] MEDS: ATORVASTATIN CALCIUM 40 MG TABLET PO SCH (21:00)
[2022-12-24] MEDS: INSULIN GLARGINE,HUM.REC.ANLOG 100 UNITS/ML SQ SCH (21:00)
[2022-12-24 21:02] LABS: GLUCOMETER DEV NAME(LOC) 2WR.1C; GLUCOSE,POINT OF CARE 159 MG/DL (70-110)
[2022-12-24] MEDS: SENNOSIDES 8.6 MG TABLET PO SCH (22:44)
[2022-12-24] MEDS: QUEtiapine FUMARATE 25 MG TABLET PO SCH (22:46)
[2022-12-25 06:51] LABS: GLUCOMETER DEV NAME(LOC) 2WR.1C; GLUCOSE,POINT OF CARE 82 MG/DL (70-110)
[2022-12-25] MEDS: DOCUSATE SODIUM 250 MG CAPSULE PO SCH ×2 (08:22→20:58)
[2022-12-25] MEDS: POLYETHYLENE GLYCOL 3350 17 GM PACKET PO SCH (08:22)
[2022-12-25] MEDS: FOLIC ACID 1 MG TABLET PO SCH (08:23)
[2022-12-25] MEDS: ASPIRIN 81 MG CHEWABLE TABLET PO SCH (08:23)
[2022-12-25] MEDS: NITROFURANTOIN MONOHYD/M-CRYST 100 MG CAPSULE [MACROBID] PO SCH ×2 (08:24→20:52)
[2022-12-25] MEDS: METOPROLOL SUCCINATE 50 MG ER TABLET PO SCH (08:25)
[2022-12-25] MEDS: CLOPIDOGREL BISULFATE 75 MG TABLET PO SCH (08:25)
[2022-12-25] MEDS: THIAMINE 100 MG TABLET PO SCH (08:26)
[2022-12-25 08:30] VITALS: BP 133/73
[2022-12-25] MEDS: ETHYL ALCOHOL 62% ANTISEPTIC NASAL SANITIZER 0.6 ML AMPUL NASAL SCH ×2 (10:33→20:52)
[2022-12-25 12:30] VITALS: BP 155/84
[2022-12-25 13:16] LABS: GLUCOMETER DEV NAME(LOC) 2WR.1C; GLUCOSE,POINT OF CARE 78 MG/DL (70-110)
[2022-12-25 17:57] LABS: GLUCOMETER DEV NAME(LOC) 2WR.1C; GLUCOSE,POINT OF CARE 121 MG/DL (70-110)
[2022-12-25] MEDS: ATORVASTATIN CALCIUM 40 MG TABLET PO SCH (20:52)
[2022-12-25] MEDS: QUEtiapine FUMARATE 25 MG TABLET PO SCH (20:53)
[2022-12-25] MEDS: INSULIN GLARGINE,HUM.REC.ANLOG 100 UNITS/ML SQ SCH ×2 (20:57→21:00)
[2022-12-25] MEDS: SENNOSIDES 8.6 MG TABLET PO SCH (20:58)
[2022-12-25 20:59] VITALS: BP 136/70
[2022-12-25] MEDS ORDERED: TAMSULOSIN HCL 0.4 MG CAPSULE PO SCH (21:00)
[2022-12-25 22:31] VITALS: BP 136/70
[2022-12-26 05:21] LABS: GLUCOMETER DEV NAME(LOC) 2WR.1C; GLUCOSE,POINT OF CARE 140 MG/DL (70-110)
[2022-12-26 06:46] LABS: GLUCOMETER DEV NAME(LOC) 2WR.1C; GLUCOSE,POINT OF CARE 100 MG/DL (70-110)
[2022-12-26 08:14] VITALS: BP 141/74
[2022-12-26] MEDS: DOCUSATE SODIUM 250 MG CAPSULE PO SCH ×2 (08:25→20:06)
[2022-12-26] MEDS: ETHYL ALCOHOL 62% ANTISEPTIC NASAL SANITIZER 0.6 ML AMPUL NASAL SCH ×2 (08:25→20:06)
[2022-12-26] MEDS: NITROFURANTOIN MONOHYD/M-CRYST 100 MG CAPSULE [MACROBID] PO SCH ×2 (08:26→20:08)
[2022-12-26] MEDS: THIAMINE 100 MG TABLET PO SCH (08:27)
[2022-12-26] MEDS: ASPIRIN 81 MG CHEWABLE TABLET PO SCH (08:28)
[2022-12-26] MEDS: FOLIC ACID 1 MG TABLET PO SCH (08:30)
[2022-12-26] MEDS: METOPROLOL SUCCINATE 50 MG ER TABLET PO SCH (08:31)
[2022-12-26] MEDS: POLYETHYLENE GLYCOL 3350 17 GM PACKET PO SCH (08:32)
[2022-12-26] MEDS: CLOPIDOGREL BISULFATE 75 MG TABLET PO SCH (08:42)
[2022-12-26 19:26] LABS: APPEARANCE,URINE CLEAR (CLEAR); BILIRUBIN,URINE NEGATIVE (NEGATIVE); GLUCOSE, URINE (UA) NEGATIVE (NEGATIVE); KETONES,URINE NEGATIVE (NEGATIVE); LEUKOCYTE ESTERASE ,URINE NEGATIVE (NEGATIVE); NITRATE,URINE NEGATIVE (NEGATIVE); OCCULT BLOOD,URINE NEGATIVE (NEGATIVE); PH,URINE 5.5 (5.0-8.0); PROTEIN,URINE NEGATIVE (NEGATIVE); SPECIFIC GRAVITIY, URINE 1.024 (1.003-1.030); UROBILINOGEN,URINE <=1.0 mg/dL (<=1.0)
[2022-12-26 19:46] LABS: BACTERIA,URINE None Seen /HPF (None Seen); RBC,URINE None Seen /HPF (0-2); WBC,URINE 0-2 /HPF (0-5)
[2022-12-26 19:47] LABS: CALCIUM OXALATE CRYSTALS,UR Few /LPF (None Seen)
[2022-12-26 20:03] VITALS: BP 139/70
[2022-12-26] MEDS: ATORVASTATIN CALCIUM 40 MG TABLET PO SCH (20:06)
[2022-12-26] MEDS: SENNOSIDES 8.6 MG TABLET PO SCH (20:06)
[2022-12-26] MEDS: TAMSULOSIN HCL 0.4 MG CAPSULE PO SCH (20:06)
[2022-12-26] MEDS: QUEtiapine FUMARATE 25 MG TABLET PO SCH (20:08)
[2022-12-27 02:21] LABS: GLUCOMETER DEV NAME(LOC) 2WR.1C; GLUCOSE,POINT OF CARE 123 MG/DL (70-110)
[2022-12-27 08:05] VITALS: BP 119/80
[2022-12-27] MEDS: ETHYL ALCOHOL 62% ANTISEPTIC NASAL SANITIZER 0.6 ML AMPUL NASAL SCH ×3 (08:20→20:04)
[2022-12-27] MEDS: CLOPIDOGREL BISULFATE 75 MG TABLET PO SCH (08:21)
[2022-12-27] MEDS: METOPROLOL SUCCINATE 50 MG ER TABLET PO SCH (08:21)
[2022-12-27] MEDS: ASPIRIN 81 MG CHEWABLE TABLET PO SCH (08:21)
[2022-12-27] MEDS: DOCUSATE SODIUM 250 MG CAPSULE PO SCH ×2 (08:21→20:05)
[2022-12-27] MEDS: NITROFURANTOIN MONOHYD/M-CRYST 100 MG CAPSULE [MACROBID] PO SCH ×2 (08:22→20:05)
[2022-12-27] MEDS: FOLIC ACID 1 MG TABLET PO SCH (08:22)
[2022-12-27] MEDS: THIAMINE 100 MG TABLET PO SCH (08:22)
[2022-12-27] MEDS: POLYETHYLENE GLYCOL 3350 17 GM PACKET PO SCH (08:23)
[2022-12-27 11:14] VITALS: BP 130/74
[2022-12-27 20:02] VITALS: BP 140/81
[2022-12-27] MEDS: SENNOSIDES 8.6 MG TABLET PO SCH (20:04)
[2022-12-27] MEDS: QUEtiapine FUMARATE 25 MG TABLET PO SCH (20:05)
[2022-12-27] MEDS: ATORVASTATIN CALCIUM 40 MG TABLET PO SCH (20:05)
[2022-12-27] MEDS: TAMSULOSIN HCL 0.4 MG CAPSULE PO SCH (20:05)
[2022-12-27 22:21] VITALS: BP 140/81
[2022-12-28 08:36] VITALS: BP 141/87
[2022-12-28] MEDS: ETHYL ALCOHOL 62% ANTISEPTIC NASAL SANITIZER 0.6 ML AMPUL NASAL SCH ×2 (09:00→20:26)
[2022-12-28] MEDS: POLYETHYLENE GLYCOL 3350 17 GM PACKET PO SCH (09:34)
[2022-12-28] MEDS: FOLIC ACID 1 MG TABLET PO SCH (09:35)
[2022-12-28] MEDS: THIAMINE 100 MG TABLET PO SCH (09:35)
[2022-12-28] MEDS: DOCUSATE SODIUM 250 MG CAPSULE PO SCH ×2 (09:35→20:27)
[2022-12-28] MEDS: METOPROLOL SUCCINATE 50 MG ER TABLET PO SCH (09:36)
[2022-12-28] MEDS: ASPIRIN 81 MG CHEWABLE TABLET PO SCH (09:36)
[2022-12-28] MEDS: CLOPIDOGREL BISULFATE 75 MG TABLET PO SCH (09:36)
[2022-12-28] MEDS: QUEtiapine FUMARATE 25 MG TABLET PO SCH (20:26)
[2022-12-28] MEDS: TAMSULOSIN HCL 0.4 MG CAPSULE PO SCH (20:26)
[2022-12-28] MEDS: SENNOSIDES 8.6 MG TABLET PO SCH (20:27)
[2022-12-28] MEDS: ATORVASTATIN CALCIUM 40 MG TABLET PO SCH (20:27)
[2022-12-28 21:30] VITALS: BP_SYST 132; BP_SYST 149; BP_DIAS 77; BP_DIAS 79
[2022-12-29 08:04] VITALS: BP 127/79
[2022-12-29] MEDS: POLYETHYLENE GLYCOL 3350 17 GM PACKET PO SCH (08:27)
[2022-12-29] MEDS: ETHYL ALCOHOL 62% ANTISEPTIC NASAL SANITIZER 0.6 ML AMPUL NASAL SCH ×2 (08:27→20:59)
[2022-12-29] MEDS: CLOPIDOGREL BISULFATE 75 MG TABLET PO SCH (08:28)
[2022-12-29] MEDS: THIAMINE 100 MG TABLET PO SCH (08:28)
[2022-12-29] MEDS: ASPIRIN 81 MG CHEWABLE TABLET PO SCH (08:28)
[2022-12-29] MEDS: METOPROLOL SUCCINATE 50 MG ER TABLET PO SCH (08:29)
[2022-12-29] MEDS: DOCUSATE SODIUM 250 MG CAPSULE PO SCH ×2 (08:29→21:00)
[2022-12-29] MEDS: FOLIC ACID 1 MG TABLET PO SCH (08:29)
[2022-12-29] MEDS: FINASTERIDE 5 MG TABLET PO SCH (08:30)
[2022-12-29] MEDS: LIDOCAINE 2% 5 ML JELLY TP PRN (17:12)
[2022-12-29 20:00] VITALS: BP 148/85
[2022-12-29] MEDS: TAMSULOSIN HCL 0.4 MG CAPSULE PO SCH (21:00)
[2022-12-29] MEDS: ATORVASTATIN CALCIUM 40 MG TABLET PO SCH (21:00)
[2022-12-29] MEDS: QUEtiapine FUMARATE 25 MG TABLET PO SCH (21:01)
[2022-12-29] MEDS: SENNOSIDES 8.6 MG TABLET PO SCH (21:01)
[2022-12-30 08:00] VITALS: BP 122/75
[2022-12-30] MEDS: POLYETHYLENE GLYCOL 3350 17 GM PACKET PO SCH (08:11)
[2022-12-30] MEDS: DOCUSATE SODIUM 250 MG CAPSULE PO SCH ×2 (08:11→20:42)
[2022-12-30] MEDS: FINASTERIDE 5 MG TABLET PO SCH (08:11)
[2022-12-30] MEDS: THIAMINE 100 MG TABLET PO SCH (08:11)
[2022-12-30] MEDS: CLOPIDOGREL BISULFATE 75 MG TABLET PO SCH (08:11)
[2022-12-30] MEDS: FOLIC ACID 1 MG TABLET PO SCH (08:12)
[2022-12-30] MEDS: METOPROLOL SUCCINATE 50 MG ER TABLET PO SCH (08:12)
[2022-12-30] MEDS: ASPIRIN 81 MG CHEWABLE TABLET PO SCH (08:12)
[2022-12-30] MEDS: ETHYL ALCOHOL 62% ANTISEPTIC NASAL SANITIZER 0.6 ML AMPUL NASAL SCH ×2 (08:14→20:42)
[2022-12-30] MEDS: LIDOCAINE 2% 5 ML JELLY TP PRN ×3 (10:12→22:24)
[2022-12-30] MEDS: TAMSULOSIN HCL 0.4 MG CAPSULE PO SCH (20:41)
[2022-12-30] MEDS: QUEtiapine FUMARATE 25 MG TABLET PO SCH (20:42)
[2022-12-30] MEDS: SENNOSIDES 8.6 MG TABLET PO SCH (20:42)
[2022-12-30] MEDS: ATORVASTATIN CALCIUM 40 MG TABLET PO SCH (20:52)
[2022-12-30 21:00] VITALS: BP 161/89
[2022-12-31] MEDS: LIDOCAINE 2% 5 ML JELLY TP PRN (05:25)
[2022-12-31 05:29] VITALS: BP 169/77
[2022-12-31] MEDS ORDERED: HydrALAZINE HCL 10 MG TABLET PO PRN (05:45)
[2022-12-31] MEDS: ETHYL ALCOHOL 62% ANTISEPTIC NASAL SANITIZER 0.6 ML AMPUL NASAL SCH (08:21)
[2022-12-31] MEDS: THIAMINE 100 MG TABLET PO SCH (08:21)
[2022-12-31] MEDS: METOPROLOL SUCCINATE 50 MG ER TABLET PO SCH (08:22)
[2022-12-31] MEDS: ASPIRIN 81 MG CHEWABLE TABLET PO SCH (08:22)
[2022-12-31] MEDS: FINASTERIDE 5 MG TABLET PO SCH (08:22)
[2022-12-31] MEDS: CLOPIDOGREL BISULFATE 75 MG TABLET PO SCH (08:22)
[2022-12-31] MEDS: FOLIC ACID 1 MG TABLET PO SCH (08:23)
[2022-12-31] MEDS: DOCUSATE SODIUM 250 MG CAPSULE PO SCH (08:23)
[2022-12-31] MEDS: POLYETHYLENE GLYCOL 3350 17 GM PACKET PO SCH (08:24)
[2022-12-31 08:30] VITALS: BP 151/84
== END 2022-12-31 20:23 | DRG 280 ==
LOC: 2WR 23:33
PROVIDERS: ADMIT Physical Medicine & Rehabilitation; ATTEND Physical Medicine & Rehabilitation
DX: I21.3 ST elevation (STEMI) myocardial infarction of unspecified site (principal); A41.9 Sepsis, unspecified organism; G92.8 Other toxic encephalopathy; N17.0 Acute kidney failure with tubular necrosis; I69.351 Hemiplegia and hemiparesis following cerebral infarction affecting right dominant side; E51.2 Wernicke's encephalopathy; N39.0 Urinary tract infection, site not specified; E11.40 Type 2 diabetes mellitus with diabetic neuropathy, unspecified; I10 Essential (primary) hypertension; I25.10 Atherosclerotic heart disease of native coronary artery without angina pectoris; I25.2 Old myocardial infarction; K56.41 Fecal impaction; Z63.4 Disappearance and death of family member; Z82.0 Family history of epilepsy and other diseases of the nervous system; Z82.49 Family history of ischemic heart disease and other diseases of the circulatory system; Z91.199 Patient's noncompliance with other medical treatment and regimen due to unspecified reason
CPT/HCPCS: 80053; 81001; 82962; 83036; 84153; 85025; 87081; 92507; 92521; 92526; 92610; 93970; 97110; 97112; 97116; 97163; 97167; 97530; 97535; 99366; J1815